=== PATIENT | female | born 1985 | race African-American/Black ===

== ENCOUNTER → 2016-11-08 | Outpatient (CLI) | payer OTHER ==
[~2016-11-08] MED LIST: HYDROCODON-ACE1 EAC7 PO
--- NOTE | ~2016-11-08 | CR63 ---
[facility] A Service of [facility] [place] RADIOLOGY TEXT RESULTS PATIENT: REESE ODEN LOCATION: [facility] : 83 UNIT #: [id number] AGE: [address]: KENDRA LONG SEX: F ORDER DR: [id number] [place], [place] [address] [id number] MR#: [id number] Acc #: [id number] NAME: REESE ODEN : 1985 SEX: F STUDY DATE/TIME: 11/08/2016 13:25 UNIT: [facility] ROOM: STUDY DESCRIPTION: CR Chest 2 View Attending Physician: Kendra Long Aprn Referring Physician: Kendra Long Aprn Ordering Physician: Kendra Long Aprn Primary Care Physician: Nissa Primary Care Physician MEDICAL IMAGING REPORT This report is preliminary unless electronic signature is present EXAMINATION PA and lateral chest. DATE 11/08/2016 HISTORY Chest pain and diminished breath sounds on the left side for 1 week. COMPARISON PA and lateral chest, 09/21/2013. FINDINGS PA and lateral examination of the chest upright shows a good expansion of the parenchyma with a normal distribution of the pulmonary vascularity. There is no indication of congestion, effusion, infiltrate, tumor, or nodular density. The pleural reflections and diaphragmatic contours are normal. The cardiac silhouette and mediastinal anatomy is within normal limits. IMPRESSION Normal PA and lateral chest. Dictated by... Rachelle Montes De Oca M.D. THIS IS AN ELECTRONICALLY VERIFIED REPORT Rachelle Montes De Oca M.D. at 11/09/2016 7:46 PM MOMO/ulices TD: 11/09/2016 06:55 JOB #: [id number] [facility] A Service [facility] RADIOLOGY TEXT RESULTS PATIENT: REESE ODEN LOCATION: [facility] : 83 UNIT #: [id number] AGE: [address]: KENDRA LONG SEX: F ORDER DR: MEDICAL IMAGING REPORT Page 1 of 1 COPY
== END | disposition home or self-care (01) ==
LOC: CRAD 12:52
DX: R07.89 Other chest pain (principal); R06.02 Shortness of breath
CPT/HCPCS: 71020